=== PATIENT | female | born 2000 | race Caucasian/White ===

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

== ENCOUNTER 2019-04-08 16:35 | Emergency (ER) | payer OTHER ==
[2019-04-08 17:09] VITALS: BP 137/75
--- NOTE | 2019-04-08 19:11 | UC ---
Knee Pain HPI - HPI Summary HPI Summary: 18 year old woman comes in with a chief complaint of right knee pain. Couple weeks ago she slipped on the ice and hyperextended the right knee. She's had pain ever since that time. She's tried ibuprofen that has not really helped. She also has used a knee brace that's not helping. She has torn her menisci in the past. She does have swelling of the knee. Knee feels unstable when ambulating. Pain is worse with activity and better with rest. - History of Current Complaint Chief Complaint: UCLowerExtremity Stated Complaint: RIGHT KNEE INJURY Time Seen by Provider: 04/08/19 18:24 Hx Last Menstrual Period: 04/02/19 on BCP Pain Intensity: 7 - Allergies/Home Medications Allergies/Adverse Reactions: Allergies Allergy/AdvReac Type Severity Reaction Status Date / Time No Known Allergies Allergy Verified 04/08/19 17:04 Home Medications: Home Medications Bcp 1 tab DAILY 04/08/19 [History Confirmed 04/08/19] PMH/Surg Hx/FS Hx/Imm Hx Previously Healthy: Yes - prior forearm meniscus - Surgical History Surgical History: None - Family History Known Family History: Positive: None - Social History Alcohol Use: None Substance Use Type: None Smoking Status (MU): Never Smoked Tobacco - Immunization History Vaccination Up to Date: Yes Review of Systems All Other Systems Reviewed And Are Negative: Yes Constitutional: Positive: Negative Skin: Positive: Negative Eyes: Positive: Negative ENT: Positive: Negative Respiratory: Positive: Negative Cardiovascular: Positive: Negative Gastrointestinal: Positive: Negative Motor: Positive: Negative Neurovascular: Positive: Negative Musculoskeletal: Positive: Other: - SEE HPI Neurological: Positive: Negative Psychological: Positive: Negative Is Patient Immunocompromised?: No Physical Exam Triage Information Reviewed: Yes Appearance: Well-Appearing, Well-Nourished, Pain Distress - MILD WITH RT KNEE ROM AND EXAM Vital Signs: Initial Vital Signs Temp 98.3 F 04/08/19 17:06 Pulse 82 04/08/19 17:06 Resp 16 04/08/19 17:06 BP 137/75 04/08/19 17:06 Pulse Ox 99 04/08/19 17:06 Vital Signs Reviewed: Yes Eye Exam: Normal Eyes: Positive: Conjunctiva Clear Neck: Positive: Supple Respiratory: Positive: No respiratory distress Musculoskeletal: Positive: Other: - Right knee has some posterior swelling. Patella is nontender to palpation. Knee is tender to palpation in the popliteal region and also bilaterally over the collateral ligaments. Patient has pain with Yannick's. 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 Neurological: Positive: Alert Psychological: Positive: Age Appropriate Behavior Skin Exam: Normal Knee Pain Course/Dx - Course Course Of Treatment: Discussed the x-rays with the patient I do not see any fracture. Final radiologist reading is pending. With the patient feeling unstable and with being tender to palpation and painful with Yannick's concerned about internal derangement of the right knee. In clinic patient placed in an Ross wrap and knee immobilizer by nursing patient neurovascular intact after placement. Going to continue ice and ibuprofen. Also went home with crutches. Follow-up with sports medicine orthopedics. - Differential Dx/Diagnosis Provider Diagnosis: Right knee pain Discharge ED - Sign-Out/Discharge Documenting (check all that apply): Patient Departure All imaging exams completed and their final reports reviewed: No - Discharge Plan Condition: Stable Disposition: HOME Patient Education Materials: Swollen Knee Joint (ED) Referrals: [facility] [Provider Group] Bulmaro Marcum MD [Medical Doctor] - Additional Instructions: FOLLOW UP WITH SPORTS MEDICINE OR ORTHOPEDICS. TAKE IBUPROFEN 600MG EVERY 6 HOURS NEEDED. GET RECHECKED SOONER IF YOUR CONDITION WORSENS OR ANY QUESTIONS OR CONCERNS. - Billing Disposition and Condition Condition: STABLE Disposition: Home
--- NOTE | 2019-04-09 07:43 | UC ---
- Progress Note Progress Note: reviewed radiology report of Dr. Gonzalez: knee with no evidence of fracture. No change from wet read, no change in discharge plan based on reprot. Course/Dx - Diagnoses Provider Diagnoses: Right knee pain Discharge ED - Sign-Out/Discharge Documenting (check all that apply): Post-Discharge Follow Up All imaging exams completed and their final reports reviewed: Yes - Discharge Plan Condition: Stable Disposition: HOME Patient Education Materials: Swollen Knee Joint (ED) Referrals: [facility] [Provider Group] Bulmaro Marcum MD [Medical Doctor] - Additional Instructions: FOLLOW UP WITH SPORTS MEDICINE OR ORTHOPEDICS. TAKE IBUPROFEN 600MG EVERY 6 HOURS NEEDED. GET RECHECKED SOONER IF YOUR CONDITION WORSENS OR ANY QUESTIONS OR CONCERNS. - Billing Disposition and Condition Condition: STABLE Disposition: Home
== END 2019-04-08 19:31 | disposition home or self-care (01) ==
LOC: UCCORT 16:35
DX: M25.561 Pain in right knee (principal); W18.49XA Other slipping, tripping and stumbling without falling, initial encounter; X50.0XXA Overexertion from strenuous movement or load, initial encounter; Y92.9 Unspecified place or not applicable
CPT/HCPCS: 99213; G0463